=== PATIENT | female | born 1970 | race Caucasian/White ===

== ENCOUNTER 2020-03-19 08:03 | Outpatient (CLI) | payer BC ==
--- NOTE | 2020-03-19 11:06 | MRI ---
MR of the abdomen with and without IV contrast INDICATION: History of epigastric abdominal pain, hemorrhoids, cholecystectomy and biliary ductal dil atation TECHNIQUE: Multiplanar multisequence MR images were obtained of the abdomen with and without contrast utilizing MRCP protocol. Contrast: 18 cc of MultiHance was utilized. COMPARISON: CT the abdomen and pelvis from [facility] dated March 14, 2018. FINDINGS: Liver: No suspicious focal hepatic lesion is evident. There are tiny subcentimeter cysts within the s egment 5 of the right hepatic lobe. Gallbladder and biliary system: The gallbladder is surgically absent. No intraluminal stone or sludge is identified. There is mild intrahepatic biliary duct dilatation predominantly affecting the left hepatic biliary system.The common bile duct measures: 1.1 cm. Pancreas: No focal pancreatic lesion is evident. The main pancreatic duct is normal in caliber measur ing 3 mm at the pancreatic head and 2 mm at the pancreatic body. Adrenal glands: Normal appearing. Kidneys: Normal appearing.. Spleen: Normal in size and signal intensity. Retroperitoneum and peritoneal cavity: No free fluid or lymphadenopathy is evident. Osseous structures: Bone marrow signal intensity is within normal limits. IMPRESSION: 1. Postprocedural change of a cholecystectomy. Mild intrahepatic and extrahepatic biliary ductal dila tation consistent with the patient's postcholecystectomy state. No intraluminal stone or sludge is present within the biliary system. 2. Small right hepatic lobe cysts.
== END 2020-03-19 08:04 | disposition home or self-care (01) ==
LOC: SCSMRI 08:03
PROVIDERS: ATTEND Internal Medicine Gastroenterology
DX: K64.9 Unspecified hemorrhoids (principal); R10.13 Epigastric pain; E73.9 Lactose intolerance, unspecified; K83.8 Other specified diseases of biliary tract; K76.89 Other specified diseases of liver; Z90.49 Acquired absence of other specified parts of digestive tract
CPT/HCPCS: 74183

== ENCOUNTER 2021-12-22 11:40 | Outpatient (CLI) | payer BC ==
[2021-12-22 12:43] LABS: Hemoglobin 11.1 g/dL (12.0-15.5); Mean Corpuscular Hemoglobin 30.4 pg (27.0-33.0); Mean Corpuscular Volume 95.1 fl (81.6-98.3); Mean Platelet Volume 10.8 fl (7.4-10.4); Platelet Count 228 10x3/uL (150-450); RBC Distribution Width 13.1 % (11.5-14.5); Red Blood Cell (RBC) Count 3.65 10x6/uL (3.90-5.03); White Blood Cell (WBC) Count 6.2 10x3/uL (3.5-10.5)
[2021-12-22 12:54] LABS: INR-International Normal Ratio 0.9; PTT 25.4 sec (22.0-33.0); Prothrombin Time 9.7 sec (9.5-12.1)
[2021-12-22 13:06] LABS: Anion Gap 13 mmol/L (10-20); BUN (Urea Nitrogen) 12 mg/dL (9.8-20.1); Calc. Creatinine Clearance 0 mL/min (70-130); Calcium 9.2 mg/dL (7.8-10.44); Carbon Dioxide 26 mmol/L (22-29); Chloride 106 mmol/L (98-107); Estimated GFR 81; Glucose 92 mg/dL (70-105); Potassium 4.4 mmol/L (3.5-5.1); Sodium 141 mmol/L (136-145)
== END 2021-12-22 11:41 | disposition home or self-care (01) ==
LOC: LABBT 11:40
PROVIDERS: ATTEND Urology
DX: Z01.812 Encounter for preprocedural laboratory examination (principal); Z20.822 Contact with and (suspected) exposure to COVID-19
CPT/HCPCS: 80048; 85027; 85610; 85730; 87086; 87811

== ENCOUNTER 2021-12-26 07:09 | Day surgery (SDC) | payer BC ==
[2021-12-23 12:12] VITALS: BMI 32.8
[2021-12-26] MEDS ORDERED: Ondansetron PF 4 MG/2 ML Vial ONE (10:30)
[2021-12-26] MEDS ORDERED: Midazolam HCl 2 mg/2 ml Vial ONE (10:30)
[2021-12-26] MEDS ORDERED: CEFAZOLIN 2 GM VIAL ONE (10:36)
[2021-12-26] MEDS ORDERED: Sodium Chloride 0.9% 100 ML ONE (10:36)
[2021-12-26] MEDS ORDERED: fentaNYL Citrate/PF 100 MCG/2 ML SYRINGE ONE (10:44)
[2021-12-26] MEDS ORDERED: Dexamethasone 20 MG/5 ML VIAL ONE (10:50)
[2021-12-26] MEDS ORDERED: Lidocaine 1% PF 5 ML VIAL ONE (10:50)
[2021-12-26] MEDS ORDERED: PROPOFOL 200 MG/20 ML VIAL ONE (10:50)
[2021-12-26] MEDS ORDERED: Iopamidol 30 ML ONE (11:29)
[2021-12-26] MEDS ORDERED: Fentanyl 100 MCG/2 ML VIAL ONE ×2 (11:42→12:09)
== END 2021-12-26 13:25 | disposition home or self-care (01) ==
LOC: SDC 07:09
PROVIDERS: ATTEND Urology
PROC: BT141ZZ Fluoroscopy of Kidneys, Ureters and Bladder using Low Osmolar Contrast (ICD-10-PCS; principal; 2021-12-26)
DX: R35.0 Frequency of micturition (principal); R39.15 Urgency of urination; R10.2 Pelvic and perineal pain; R31.29 Other microscopic hematuria; R30.0 Dysuria; K21.9 Gastro-esophageal reflux disease without esophagitis; E78.5 Hyperlipidemia, unspecified; F17.210 Nicotine dependence, cigarettes, uncomplicated; Z79.899 Other long term (current) drug therapy; Z88.5 Allergy status to narcotic agent; Z91.018 Allergy to other foods; Z91.041 Radiographic dye allergy status
CPT/HCPCS: 74420; J0690; J1100; J2250; J2405; J2704; J3010; J3490; Q9967